=== PATIENT | female | born 1950 | race Caucasian/White ===

== ENCOUNTER 2021-08-07 11:19 | Emergency (ER) | payer MEDICARE, OTHER, SELFPAY ==
--- NOTE | ~2021-08-07 | XR_ITS ---
EXAMINATION: XR chest 2V DATE: 08/07/2021 11:47 INDICATION: Chest pain. Dizziness. TECHNIQUE: Frontal and lateral views of the chest were obtained. COMPARISON: Chest 2 views 06/15/2010 FINDINGS: The chest demonstrates clear lungs without pneumonia, pleural effusion, or pneumothorax. Th e heart size is normal. IMPRESSION: 1. No acute cardiopulmonary disease. Reviewed, dictated and finalized at location B.
--- NOTE | 2021-08-07 11:22 | ECG_ITS ---
Measurements Intervals [place] Rate: 69 P: 34 SD: 137 QRS: 9 QRSD: 90 T: 30 QT: 384 QTc: 413 Interpretive Statements SINUS RHYTHM BORDERLINE T WAVE ABNORMALITY- INFERIOR LEADS BASELINE ARTIFACT- II, III, AVF BORDERLINE ECG Electronically Signed On 08-07-2021 11:29:44 CDT by Tavares Max D.O.
[2021-08-07 11:40] LABS: Basophils Percent Auto 0.6 % (0.2-1.2); Eosinophils Absolute Auto 0.2 K/mm3 (0-0.3); Eosinophils Percent Auto 3.4 % (0-4.4); Hematocrit 44.6 % (37.0-47.0); Hemoglobin 14.7 g/dL (12.0-15.0); Immature Granulocyte Absolute 0.02 K/mm3 (0.00-0.031); Immature Granulocyte Percent A 0.4 % (0-0.5); Lymphocytes Absolute Auto 1.41 K/mm3 (0.9-3.2); Lymphocytes Percent Auto 26.8 % (18.3-44.2); Mean Corpuscular Hemoglobin 29.5 pg (26-34); Mean Corpuscular Volume 89.4 fl (80-100); Mean Platelet Volume 9.6 fl (7.4-10.4); Monocytes Absolute Auto 0.5 K/mm3 (0.1-0.6); Monocytes Percent Auto 8.7 % (2.6-8.5); Neutrophils Absolute Auto 3.2 K/mm3 (1.3-6.7); Neutrophils Percent Auto 60.1 % (45.5-73.1); Platelet Count Result 251 k/mm3 (150-375); Red Blood Count 4.99 M/mm3 (4.2-5.4); Red Cell Distribution Width 13.2 % (11.5-14.5); White Blood Count 5.3 K/mm3 (4.5-10.0)
[2021-08-07 11:53] LABS: Alanine Aminotransferase 16 U/L (6-35); Albumin Level 4.1 g/dL (3.5-5.1); Alkaline Phosphatase 94 U/L (38-126); Anion Gap 5 mmol/L (8-16); Aspartate Amino Transferase 28 U/L (14-36); Bilirubin,Total 0.4 mg/dL (0.2-1.3); Blood Urea Nitrogen 19 mg/dL (7-17); Carbon Dioxide 29 mmol/L (22-30); Chloride 105 mmol/L (98-107); Estimated Glomerular Filt Rate > 60; Glucose 99 mg/dL (65-110); INR 0.9; Lipase 162 U/L (23-300); Potassium 4.3 mmol/L (3.4-5.0); Prothrombin Time 12.1 Seconds (11.1-14.7); Sodium 139 mmol/L (137-145)
[2021-08-07 11:54] LABS: Partial Thromboplastin Time 25.3 SECONDS (22.3-36.8)
[2021-08-07 12:03] VITALS: BP 183/108; PULSE 69; RESP 16; TEMP 36.5; O2SAT 98
[2021-08-07 12:03] LABS: Troponin I < 0.012 ng/mL (0.000-0.034)
[2021-08-07 15:38] LABS: Troponin I < 0.012 ng/mL (0.000-0.034)
[2021-08-07] MEDS: Please add drug allergy info to patient profile. 1 EACH XX (16:36)
--- NOTE | 2021-08-07 16:37 | PC.NURSE ---
called lab and spoke to Rosaura. added on a BNP at 1637
[2021-08-07 17:09] LABS: NT Pro B Type Natriuretic Pept 167 pg/mL (5-100)
--- NOTE | 2021-08-07 17:11 | ED.GENADULT ---
HPI - General Adult General Chief complaint: Chest Pain Stated complaint: Chest Pain, Dizzy Time Seen by Provider: 08/07/21 15:49 Source: patient Limitations: no limitations History of Present Illness HPI narrative: 71-year-old female presented to the emergency department for evaluation of intermittent lightheadedness and generalized weakness. Patient states that this has been occurring almost daily for the last 2 months. Patient has not yet had follow-up with her primary care physician for this. Patient states she is also having some left-sided chest pain. Patient states she did have a stress test approximately 15 years ago. Patient does have a prior history of mitral valve prolapse. Patient denies any prior history of AL or CVA. Patient states this morning she was taking care of her horses when she had worsening of her lightheaded and dizziness. Patient states that she also had increased generalized weakness of her lower extremities. Patient denies any falls or injuries. Patient states that after his rest the symptoms did begin to improve. Denies any prior history of PE or DVT. Patient is not on any hormone replacement. Patient denies any recent falls or injuries. Patient denies any recent long car rides or plane trips. Related Data Allergies Allergy/AdvReac Type Severity Reaction Status Date / Time Penicillins Allergy Intermediate Rash Verified 08/07/21 15:56 Review of Systems Review of Systems: CONSTITUTIONAL: Denies fever, chills, or sweats. EYES: Denies visual changes, redness, or discharge. ENT: Denies rhinorrhea, congestion, sore throat, or otalgia. CARDIOVASCULAR: See HPI RESPIRATORY: Denies cough or dyspnea. GASTROINTESTINAL: Denies abdominal pain, nausea, vomiting, or diarrhea. GENITOURINARY: Denies dysuria or hematuria. SKIN: Denies rash or itching. MUSCULOSKELETAL: Denies back pain, joint pain, or myalgia. NEUROLOGIC: Denies headache, numbness, or weakness. PSYCHIATRIC: Denies anxiety or depression. All systems reviewed & are unremarkable except as noted in HPI and below Exam Narrative: APPEARANCE: Well appearing, no pain, no distress, well-nourished. HEAD: normocephalic, atraumatic. EYES: PERRLA/EOMI, conjunctivae clear. NOSE: Normal no drainage THROAT: Pharynx clear, no exudate. NECK: Supple. No adenopathy, no masses. RESPIRATORY: Airway patent, respirations nonlabored. Clear to auscultation bilaterally, no rales, rhonchi, wheezing. CARDIOVASCULAR: Regular rate and rhythm without murmurs rubs or gallops. ABDOMINAL: Soft, nontender, nondistended, normal bowel sounds MUSCULOSKELETAL: Moves all extremities. Strength/ROM intact, No edema, No calf tenderness. NEURO: Alert. Cranial nerves II through XII intact. Grossly intact SKIN: Warm, dry. Normal Color PSYCHIATRIC: Normal affect/mood. Course Course Emergency Course: Patient has a heart score of less than 3. Patient was encouraged to have close follow-up with her primary care physician and to obtain a Holter monitor and to have an outpatient stress test. Patient had negative serial troponins, EKG showed no evidence of acute STEMI. Chest x-ray showed no acute cardiopulmonary abnormality. Patient's D-dimer was not elevated Vital Signs Vital signs: Vital Signs Temperature 97.7 F 08/07/21 12:03 Pulse Rate 69 08/07/21 12:03 Respiratory Rate 16 08/07/21 12:03 Blood Pressure 183/108 H 08/07/21 12:03 Pulse Oximetry 98 08/07/21 12:03 Temperature 97.3 F L 08/07/21 19:10 Pulse Rate 64 08/07/21 19:10 Respiratory Rate 16 08/07/21 19:10 Blood Pressure 156/87 H 08/07/21 19:10 Pulse Oximetry 100 08/07/21 19:10 Medical Decision Making Vital Signs Vital Signs: Vital Signs Temperature 97.7 F 08/07/21 12:03 Pulse Rate 69 08/07/21 12:03 Respiratory Rate 16 08/07/21 12:03 Blood Pressure 183/108 H 08/07/21 12:03 Pulse Oximetry 98 08/07/21 12:03 Temperature 97.3 F L 08/07/21 19:10 Pulse Rate 64 08/07/21 19:10
[2021-08-07 17:35] VITALS: PULSE 62
--- NOTE | 2021-08-07 17:35 | PC.NURSE ---
Called lab and added on D Dimer as ordered by EDP.
[2021-08-07 17:36] VITALS: BP 152/101; PULSE 62; RESP 20; O2SAT 100
[2021-08-07 18:12] LABS: D Dimer 0.42 ug/mL (<0.48)
[2021-08-07 18:20] LABS: Troponin I < 0.012 ng/mL (0.000-0.034)
[2021-08-07 18:27] VITALS: BP 159/85; PULSE 72; RESP 16; TEMP 36.4; O2SAT 100
[2021-08-07 19:10] VITALS: BP 156/87; PULSE 64; RESP 16; TEMP 36.3; O2SAT 100
== END 2021-08-07 19:12 | disposition home or self-care (01) ==
PROVIDERS: Emergency Medicine; Emergency Provider Emergency Medicine
DX: R07.89 Other chest pain (principal); R94.31 Abnormal electrocardiogram [ECG] [EKG]
CPT/HCPCS: 36415; 71046; 80053; 83690; 83880; 84484; 85025; 85380; 85610; 85730; 93005; 99284

== ENCOUNTER 2021-09-12 07:27 | Outpatient (CLI) | payer MEDICARE, OTHER, SELFPAY ==
--- NOTE | 2021-09-12 08:05 | ECHO_ITS ---
Patient Info Name: Hailee Tamayo Age: 71 years : 1950 Gender: Female Ht: 69 in Wt: 165 lbs BSA: 1.92 m2 HR: 55 bpm BP: 151 / 95 mmHg Heart Rhythm: Bradycardia Technical Quality: Good Exam Date: 09/12/2021 8:19 AM Exam Location: [facility] Patient Status: Outpatient Admit Date: 09/12/2021 Staff Ordering Physician: Margo Daniels NP Dispersion Mixer: Lakeisha Ybarra RDCS Attending Provider: Margo Daniels NP Referring Physician: Frances TROTTER; Exam Type: CA echo doppler color flow Study Info Indications I34.1 - Nonrheumatic mitral (valve) prolapse Complete two-dimensional, color flow and Doppler transthoracic echocardiogram is performed. Summary 1. Complete two-dimensional, color flow and Doppler transthoracic echocardiogram is performed. 2. Mild LV enlargement, normal wall thickness, LV systolic function is at lower limits of normal with ejection fraction about 50-55%. Indeterminate diastolic function. Global longitudinal strain-17%. Moderate left atrial enlargement. Mild posterior mitral valve leaflet prolapse with mild mitral regurgitation. Normal aortic valve structure, no hemodynamically significant stenosis. Trivial TR, unable to assess RVSP due to inadequate TR jet. Sinus bradycardia. Left Ventricle Left ventricular chamber dimension is mildly enlarged. Left ventricular systolic function is mildly reduced, estimated at 50-55%. There is no increased left ventricular wall thickness. Right Ventricle Right ventricular chamber dimension is normal. Right ventricular systolic function is normal. Left Atria Left atrial chamber dimension is moderately enlarged. Right Atria Right atrial chamber dimension is normal. Aortic Valve The aortic valve is normal. There is no aortic valve stenosis. Pulmonic Valve The pulmonic valve is normal. Mitral Valve The mitral valve has posterior prolapse. There is mild mitral valve regurgitation. Tricuspid Valve The tricuspid valve leaflets are normal. There is trace tricuspid valve regurgitation. Pericardium/Pleural The pericardium appears normal. There is trivial pericardial effusion. Inferior Vena Cava Normal inferior vena cava with >50% collapse upon inspiration consistent with normal right atrial pressure, 10 mmHg. Aorta The aortic root size at the sinus of Valsalva is normal. Left Ventricular Outflow Tract Name Value Normal LVOT 2D LVOT Diameter 2.0 cm LVOT Doppler LVOT Peak Gradient 3 mmHg LVOT Mean Gradient 1 mmHg LVOT VTI 18 cm LVOT VTI/AV VTI Ratio 0.9 LVOT Stroke Volume 57 ml LVOT CO 3.2 l/min LVOT CI 1.7 l/min/m2 Pulmonic Valve Name Value Normal RVOT Doppler
== END 2021-09-12 07:28 | disposition home or self-care (01) ==
PROVIDERS: Visit Provider Nurse Practitioner Family
DX: I34.1 Nonrheumatic mitral (valve) prolapse (principal); R07.89 Other chest pain
CPT/HCPCS: 93306